=== PATIENT | female | born 1975 | race African-American/Black ===

== ENCOUNTER 2017-01-02 08:43 | Emergency (ER) | payer MEDICAID ==
[~2017-01-02] VITALS: Ht 165.1 cm; Wt 88.5 kg
[~2017-01-02 08:43] MED LIST: ACETAMINOPHEN-1 EAC1 PO; AUGMENTIN 875-1 EAC1 ORAL; BACTRIM-DS1 EA PO; KEFLEX500 MG PO; NKM; NORCO 5-325 TA1 EACH PO
[2017-01-02 09:07] VITALS: BP 104/72
--- NOTE | 2017-01-02 09:17 | Emergency Room Report ---
History of Present Illness General Chief Complaint: Upper Respiratory Illness Source: Patient Present Illness HPI Patient presents with younger child for similar symptoms of cough and congestion patient however has been dealing with this for the past 2 weeks patient has increased sinus pressure and sinus pain she reports that she has had sinusitis in the past Denies any neck pain or photophobia Patient has some mild pain with swallowing She has a history of asthma as well She reports that she was recently in the hospital had IV and hydration along with steroids given meds for asthma had flared up as well Patient reports that her symptoms started fairly soon after her son became ill Patient travels from [place] and has been to public places such as [facility] and around other children Allergies: Coded Allergies: No Known Allergies (Unverified , 04/20/12) Patient History Past Medical History: see triage record Pertinent Family History: none Last Menstrual Period: on now Now: No : 4 Para: 4 Reviewed Nursing Documentation: PMH: Agreed, PSxH: Agreed Nursing Documentation-PMH Past Medical History: No Stated History Hx Asthma: Yes Review of Systems All Other Systems: negative except mentioned in HPI Physical Exam Vital Signs Date Time Temp Pulse Resp B/P (MAP) Pulse Ox O2 Delivery O2 Flow Rate FiO2 01/02/17 08:48 97.7 82 18 104/72 98 01/02/17 09:07 Room Air Sp02 EP Interpretation: reviewed, normal General Appearance: well appearing, no apparent distress Head: normocephalic, atraumatic Eyes: bilateral eye PERRL, bilateral eye EOMI ENT: hearing grossly normal, TMs + canals normal, uvula midline, pharyngeal erythema, other - Increased pressure over the frontal sinus area and maxillary sinus Neck: full range of motion, supple, no meningismus, no bony tend Respiratory: no rhonchi, no respiratory distress, no retraction, no accessory muscle use, wheezing - Fine wheezing noted in the bilateral lower lobe clears with cough Cardiovascular #1: normal peripheral pulses, regular rate, rhythm, no edema, no gallop, no JVD, no murmur Gastrointestinal: normal bowel sounds, non tender, soft, no mass, no organomegaly, non-distended, no guarding, no hernia, no pulsatile mass, no rebound Genitourinary: no CVA tenderness Musculoskeletal: normal inspection Neurologic: oriented x3, responsive, motorcycle tester III-XII nml as tested, motor strength/ tone normal, sensory intact Psychiatric: mood/affect normal Skin: normal color, no rash, warm/dry, palpation normal Lymphatic: normal inspection, no adenopathy Medical Decision Making Diagnostic Impression: Primary Impression: Sinusitis, acute ER Course Patient's symptoms ongoing for the past 2 weeks Patient reports increased yellowish-brown discharge from the nasal area This raises concern of untreated bacterial sinusitis and the patient was placed on antibiotics for this reason for continued outpatient care Last Vital Signs Date Time Temp Pulse Resp B/P (MAP) Pulse Ox O2 Delivery O2 Flow Rate FiO2 01/02/17 09:07 82 18 Room Air 01/02/17 09:07 97.7 104/72 98 Status: unchanged Disposition: HOME, SELF-CARE Condition: Stable Scripts Albuterol Sulfate* (ALBUTEROL SULFATE MDI*) 8.5 Gm Hfa.aer.ad 2 PUFF INH Q6H, #1 EA 0 Refills Prov: ROLDAN GARCIA D.O. 01/02/17 Amoxicillin/Potassium Clav 875-125* (AUGMENTIN 875-125 TABLET*) 1 Each Tablet 1 TAB ORAL TWICE A DAY, #20 TAB Prov: ROLDAN GARCIA D.O. 01/02/17 Additional Instructions: Patient is provided with the discharge instructions notified to follow up with primary doctor in the next 2-3 days otherwise return to the er with any worsening symptoms. Please note that this report is being documented using [employer] technology. This can lead to erroneous entry secondary to incorrect interpretation by the dictating instrument. ROLDAN GARCIA D.O. Jan 02, 2017 09:17
[2017-01-02] MEDS ORDERED: AUGMENTIN 875-1 EAC1 ORAL (09:19)
[2017-01-02] MEDS ORDERED: GUAIFENESIN-CO118 M1 ORAL (09:19)
[2017-01-02] MEDS ORDERED: ALBUTEROL SULF8.5 GM INH (09:19)
[2017-01-02 09:44] VITALS: BP 104/72
== END 2017-01-02 09:38 | disposition home or self-care (01) ==
LOC: EMR 09:10
DX: J01.90 Acute sinusitis, unspecified (principal); J45.909 Unspecified asthma, uncomplicated
CPT/HCPCS: 99283

== ENCOUNTER 2017-06-04 08:26 | Emergency (ER) | payer SELFPAY ==
[~2017-06-04] VITALS: Ht 165.1 cm; Wt 77.1 kg
[~2017-06-04 08:26] MED LIST changes: +ALBUTEROL SULF8.5 GM INH; +GUAIFENESIN-CO118 M1 ORAL
--- NOTE | 2017-06-04 08:57 | Emergency Room Report ---
History of Present Illness General Chief Complaint: Generalized Weakness Source: Patient Present Illness HPI 41-year-old female, no significant past medical history, presenting with right fourth digit finger pain around nail, and one week of feeling weak and tired. Patient states that she gets heavy periods monthly, states that she has not seen an CLUTCH ASSEMBLER yet. Denies any fainting episodes. She still been able to eat and drink normally. No fever chills nausea vomiting or abdominal pain States that this morning there was pus coming from her right fourth finger Allergies: Coded Allergies: No Known Allergies (Unverified , 04/20/12) Patient History Past Medical History: see triage record Past Surgical History: none Pertinent Family History: none Last Menstrual Period: 05/01/17 Now: No Reviewed Nursing Documentation: PMH: Agreed, PSxH: Agreed Nursing Documentation-PMH Hx Asthma: Yes Review of Systems All Other Systems: negative except mentioned in HPI Physical Exam Vital Signs Date Time Temp Pulse Resp B/P (MAP) Pulse Ox O2 Delivery O2 Flow Rate FiO2 06/04/17 08:32 99.0 76 19 121/83 96 Room Air 99.0 Sp02 EP Interpretation: reviewed, normal General Appearance: normal inspection, well appearing, no apparent distress, alert, GCS 15, non-toxic Head: normocephalic, atraumatic Eyes: bilateral eye normal inspection, bilateral eye PERRL, bilateral eye EOMI ENT: normal ENT inspection, normal pharynx, normal voice, moist mucus membranes Neck: normal inspection, full range of motion, supple Respiratory: normal inspection, lungs clear, normal breath sounds, no respiratory distress, no retraction, no wheezing, speaking full sentences, chest symmetrical Cardiovascular #1: normal inspection, regular rate, rhythm, no edema, normal capillary refill Cardiovascular #2: 2+ radial (R), 2+ radial (L) Gastrointestinal: normal inspection, non tender, soft, non-distended, no guarding Musculoskeletal: other - Right fourth finger around the lateral aspect of the nail, slight erythema edema, no purulent drainage noted Neurologic: normal inspection, alert, oriented x3, responsive, motor strength/ tone normal, sensory intact, normal gait, speech normal Psychiatric: normal inspection, judgement/insight normal, memory normal Skin: normal inspection, normal color, no rash, warm/dry, well hydrated, normal turgor Medical Decision Making Diagnostic Impression: Primary Impression: Paronychia Additional Impression: Generalized weakness ER Course 41-year-old female, feeling tired for one week, also with right fourth finger pain DDX: Right fourth finger appears to be paronychia, not severe enough to be drained, already drained this morning Increased tiredness, rule out anemia, electrolyte disturbance, . Patient appears very well-hydrated and is eating and drinking normally Plan: Labs, UA ER course: Patient has remained stable during ED stay. ambulating around ed, nontoxic labs unremarkable dc home Disposition: Patient is to be discharged to home. Prescriptions given are Keflex Patient is instructed to follow up with their primary care doctor within 5 days. Strict return precautions discussed with patient such as fever, chills, worsening/severe pain, chest pain, SOB, nausea, vomiting, which may indicate severe illness. Patient verbalizes understanding and agrees with plan. Please note that this Emergency Department Report was dictated using U[employer]ovepacking machine pilot can router technology software, occasionally this can lead to erroneous entry secondary to interpretation by the dictation equipment Laboratory Tests Test 06/04/17 09:08 White Blood Count 3.2 K/UL (4.8-10.8) L Red Blood Count 4.31 M/UL (4.20-5.40) Hemoglobin 13.6 G/DL (12.0-16.0) Hematocrit 41.7 % (37.0-47.0) Mean Corpuscular Volume 97 FL (80-99) Mean Corpuscular Hemoglobin 31.5 PG (27.0-31.0) H Mean Corpuscular Hemoglobin Concent 32.6 G/DL (32.0-36.0) Red Cell Distribution Width 11.9 % (11.6-14.8) Platelet Count 172 K/UL (150-450) Mean Platelet Volume 10.6 FL (6.5-10.1) H Neutrophils (%) (Auto) % (45.0-75.0) Lymphocytes (%) (Auto) % (20.0-45.0) Monocytes (%) (Auto) % (1.0-10.0) Eosinophils (%) (Auto) % (0.0-3.0) Basophils (%) (Auto) % (0.0-2.0) Neutrophils % (Manual) Pending Lymphocytes % (Manual) Pending Platelet Estimate Pending Platelet Morphology Pending Urine Color Yellow Urine Appearance Cloudy Urine pH 6 (4.5-8.0) Urine Specific Accord 1.010 (1.005-1.035) Urine Protein Negative (NEGATIVE) Urine Glucose (UA) Negative (NEGATIVE) Urine Ketones Negative (NEGATIVE) Urine Occult Blood Negative (NEGATIVE) Urine Nitrite Negative (NEGATIVE) Urine Bilirubin Negative (NEGATIVE) Urine Urobilinogen Normal MG/DL (0.0-1.0) Urine Leukocyte Esterase 1+ (NEGATIVE) H Urine RBC 0-2 /HPF (0 - 2) Urine WBC 2-4 /HPF (0 - 2) Urine Squamous Epithelial Cells Moderate /LPF (NONE/OCC) H Urine Bacteria Few /HPF (NONE) Urine HCG, Qualitative Negative Sodium Level 138 MMOL/L (136-145) Potassium Level 3.8 MMOL/L (3.5-5.1) Chloride Level 105 MMOL/L (98-107) Carbon Dioxide Level 27 MMOL/L (21-32) Anion Gap 7 mmol/L (5-15) Blood Urea Nitrogen 6 mg/dL (7-18) L Creatinine 0.7 MG/DL (0.55-1.30) Estimate Glomerular Filtration Rate > 60 mL/min (>60) Glucose Level 114 MG/DL (74-106) H Calcium Level 8.9 MG/DL (8.5-10.1) Total Bilirubin 0.5 MG/DL (0.2-1.0) Aspartate Amino Transferase (AST) 16 U/L (15-37) Alanine Aminotransferase (ALT) 21 U/L (12-78) Alkaline Phosphatase 64 U/L (46-116) Total Protein 7.7 G/DL (6.4-8.2) Albumin 3.7 G/DL (3.4-5.0) Globulin 4.0 g/dL Albumin/Globulin Ratio 0.9 (1.0-2.7) L Thyroid Stimulating Hormone (TSH) 1.511 uiU/mL (0.358-3.740) Last Vital Signs Date Time Temp Pulse Resp B/P (MAP) Pulse Ox O2 Delivery O2 Flow Rate FiO2 06/04/17 08:32 99.0 76 19 121/83 96 Room Air 99.0 Disposition: HOME, SELF-CARE Condition: Improved Scripts Cephalexin* (KEFLEX*) 500 Mg Capsule 500 MG ORAL Q6H, #28 CAP 0 Refills Prov: Sofia Randall M.D. 06/04/17 Referrals: NOT CHOSEN TARA/,REFERRING (PCP) Sofia Randall M.D. Jun 04, 2017 08:56
[2017-06-04] MEDS ORDERED: KEFLEX500 MG ORAL ×2 (08:58→23:02)
[2017-06-04 09:17] VITALS: BP 121/83
[2017-06-04 09:25] LABS: HEMATOCRIT 41.7 % (37.0-47.0); HEMOGLOBIN 13.6 G/DL (12.0-16.0); MEAN CORPUSCULAR VOLUME 97 FL (80-99); PLATELET COUNT 172 K/UL (150-450); RED BLOOD COUNT 4.31 M/UL (4.20-5.40); RED CELL DISTRIBUTION WIDTH 11.9 % (11.6-14.8); WHITE BLOOD COUNT 3.2 K/UL (4.8-10.8)
[2017-06-04 09:31] LABS: ANION GAP 7 mmol/L (5-15); BLOOD UREA NITROGEN 6 mg/dL (7-18); CALCIUM 8.9 MG/DL (8.5-10.1); CARBON DIOXIDE 27 MMOL/L (21-32); CHLORIDE 105 MMOL/L (98-107); CREATININE 0.7 MG/DL (0.55-1.30); POTASSIUM 3.8 MMOL/L (3.5-5.1); SODIUM 138 MMOL/L (136-145)
[2017-06-04 09:34] LABS: APPEARANCE,URINE CLOUDY; BILIRUBIN, URINE NEGATIVE (NEGATIVE); GLUCOSE, URINE (UA) NEGATIVE (NEGATIVE); KETONES,URINE NEGATIVE (NEGATIVE); LEUKOCYTE ESTERASE ,URINE 1+ (NEGATIVE); NITRITE,URINE NEGATIVE (NEGATIVE); PH,URINE 6 (4.5-8.0); PROTEIN,URINE NEGATIVE (NEGATIVE); UROBILINOGEN,URINE NORMAL MG/DL (0.0-1.0)
[2017-06-04 09:37] LABS: COLOR,URINE YELLOW
[2017-06-04 09:44] LABS: ALANINE AMINOTRANSFERASE 21 U/L (12-78); ALBUMIN 3.7 G/DL (3.4-5.0); ALBUMIN/GLOBULIN RATIO 0.9 (1.0-2.7); ALKALINE PHOSPHATASE 64 U/L (46-116); ASPARTATE AMINO TRANSFERASE 16 U/L (15-37); BILIRUBIN,TOTAL 0.5 MG/DL (0.2-1.0)
[2017-06-04 10:35] VITALS: BP 120/75
== END 2017-06-04 10:32 | disposition home or self-care (01) ==
LOC: EMR 08:48
DX: L03.011 Cellulitis of right finger (principal); R53.1 Weakness; J45.909 Unspecified asthma, uncomplicated
CPT/HCPCS: 36415; 80053; 81003; 81025; 84443; 85007; 85025; 99284

== ENCOUNTER → 2019-12-05 | Emergency (ER) | payer MEDICAID, OTHER ==
[~2019-12-05] VITALS: Ht 165.1 cm; Wt 77.1 kg
[~2019-12-05] MED LIST changes: +IBUPROFEN600 M1 ORAL; +KEFLEX500 MG ORAL; +PERCOCET 5-3251 EACH ORAL
[2019-12-05 09:56] VITALS: BP 120/81
--- NOTE | 2019-12-05 10:56 | NUR ---
ED Nurse Note: pt placed into rm for further interventions and xrays. rn ash assuming care
--- NOTE | 2019-12-05 11:17 | NUR ---
ED Nurse Note: meds given as ordered. pending xrays results
--- NOTE | 2019-12-05 11:24 | Diagnostic Imaging Report ---
EXAM: XR Left Toes, 3 Views CLINICAL HISTORY: TRAUMA TECHNIQUE: Frontal, lateral and oblique views of the toes of the left foot. COMPARISON: No relevant prior studies available. FINDINGS: Bones/joints: Unremarkable. No acute fracture. No dislocation. No osseous erosions. Mild degenerative narrowing at the hallux metatarsophalangeal joint. Otherwise, the remaining visualized joint spaces appear unremarkable. Soft tissues: Soft tissue swelling throughout the great toe. No radiodense foreign bodies. No soft tissue gas lucencies. IMPRESSION: Soft tissue swelling throughout the great toe. No radiodense foreign bodies. No soft tissue gas lucencies.
--- NOTE | 2019-12-05 11:27 | Emergency Room Report ---
History of Present Illness General Chief Complaint: Lower Extremity Injury Source: Patient Present Illness HPI The patient presents with pain in her left big toe. She dropped a chair on the toe yesterday. It is bruised and extremely painful. She denies any numbness. The toe is also swollen. She rates the pain 12/10 radiating up through her whole body on the left-hand side. She is never had pain like this in the states is worse than childbirth. She denies fevers or chills. There is no calf swelling or pain. She is able to ambulate. 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 COVID-19 Screening: Negative COVID-19 COVID-19 Testing Source: 1 week ago Patient History Past Medical History: see triage record Social History: Denies: smoking Social History Narrative The patient has children at home Last Menstrual Period: 2 weeks ago Now: No Nursing Documentation-[facility] Past Medical History Deferred: Pt Cognitively Impaired Hx Asthma: Yes Review of Systems Constitutional: Reports: see HPI Musculoskeletal: Reports: see HPI Skin: Reports: see HPI Neurological: Reports: see HPI Hematologic/Lymphatic: Reports: see HPI Physical Exam Vital Signs Date Time Temp Pulse Resp B/P (MAP) Pulse Ox O2 Delivery O2 Flow Rate FiO2 12/05/19 09:56 98.6 67 20 120/81 (94) 96 Room Air Sp02 EP Interpretation: reviewed, normal General Appearance: well appearing, no apparent distress, GCS 15 Head: normocephalic Eyes: bilateral eye normal inspection, bilateral eye PERRL ENT: other - Wearing a mask Neck: full range of motion Respiratory: normal inspection Cardiovascular #1: regular rate, rhythm Cardiovascular #2: 2+ radial (R), 2+ dorsalis pedis (L) Gastrointestinal: normal inspection, overweight Musculoskeletal: gait/station normal, normal range of motion, tenderness - Left great toe Neurologic: alert, distal neuro normal Psychiatric: mood/affect normal - Agitated at times due to wait Skin: other - Ecchymoses great toe, toenail macedonian Medical Decision Making Diagnostic Impression: Primary Impression: Contusion of toe of left foot Qualified Codes: S90.112A - Contusion of left great toe without damage to nail , initial encounter ER Course Patient presents with left great toe pain after trauma yesterday. Differential includes fracture, crush injury, contusion, subungual hematoma. X-rays indicated. Motrin given. X-rays without fracture. Patient wanting to leave to take care of her children. The possibility of subungual hematoma was not discussed with the patient. She had improved pain after analgesia. (Reported pain at discharge was 8/10 however the patient reported to me that she had significant relief after Motrin.) Discussed findings of the x-ray with the patient and expected course of healing. Discussed choice of analgesics with patient. She is familiar with tramadol, Tylenol with codeine, [place] and requests oxycodone. Patient stable for outpatient observation and treatment. Last Vital Signs Date Time Temp Pulse Resp B/P (MAP) Pulse Ox O2 Delivery O2 Flow Rate FiO2 12/05/19 09:56 98.6 67 20 120/81 (94) 96 Room Air Status: improved Disposition: HOME, SELF-CARE Condition: Improved Scripts Oxycodone/Acetaminophen 5-325* (PERCOCET 5-325 MG TABLET*) 1 Each Tablet 1 TAB ORAL Q6H PRN for For Pain, #8 TAB Prov: Blaise Mckeon MD 12/05/19 Ibuprofen* (MOTRIN*) 600 Mg Tablet 600 MG ORAL Q6H PRN for FOR PAIN, #20 TAB 0 Refills Prov: Blaise Mckeon MD 12/05/19 Referrals: PARVIN PACHECO,REFERRING (PCP) Blaise Mckeon MD Dec 05, 2019 11:27
--- NOTE | 2019-12-05 11:30 | NUR ---
ED Nurse Note:pt reeval by
== END | disposition home or self-care (01) ==
LOC: EMR 10:49
DX: S90.112A Contusion of left great toe without damage to nail, initial encounter (principal); W22.8XXA Striking against or struck by other objects, initial encounter; Y92.9 Unspecified place or not applicable
CPT/HCPCS: 73660; Z7502; 99283